=== PATIENT | female | born 1940 | race Caucasian/White ===

== ENCOUNTER → 2016-10-19 | Outpatient (CLI) | payer MEDICARE, BC ==
[~2016-10-19] MED LIST: AMLODIPINE BESYL5 MG PO; ASPIRIN; BENADRYL25 M1 PO; BENADRYL25 M3 PO; CLINDAMYCIN HC300 MG PO; CRESTOR; EPIPEN0.3 MG/0.1 IM; GLUCOPHAGE XR500 MG; GLUCOPHAGE850 MG PO; LOSARTAN-HCTZ1 EAC3 PO; MELATONIN5 M1 PO; PEPCID AC20 M2 PO; PREDNISONE PO; PREVACID PO; SIMVASTATIN40 MG PO; SINGULAIR; SPIRIVA18 MCG; TYLOX 5-500 CA1 EACH PO; ZETIA
--- NOTE | ~2016-10-19 | US80 ---
[facility] A Service of [facility] RADIOLOGY TEXT RESULTS PATIENT: LORELEI MCGUIRE LOCATION: [place] : 42 UNIT #: [id number] AGE: [address]: Bruno Blackburn MD SEX: F ORDER DR: [id number] [address] [address] [id number] O MR#: [id number] Acc #: [id number] NAME: LORELEI MCGUIRE : 1940 SEX: F STUDY DATE/TIME: 10/19/2016 13:34 UNIT: [facility] ROOM: STUDY DESCRIPTION: US Kidney Unilateral Complete Attending Physician: Bruno Blackburn M.D. Referring Physician: Bruno Blackburn M.D. Ordering Physician: Bruno Blackburn M.D. Primary Care Physician: Bruno Blackburn M.D. MEDICAL IMAGING REPORT This report is preliminary unless electronic signature is present. EXAM Bilateral complete renal ultrasound COMPARISONS Limited abdominal ultrasound dated August 12, [address] abdomen and pelvis dated January 13, 2006. INDICATIONS 76-year-old female with a hypoechoic 1.6-cm lesion seen in the inferior pole of the right kidney on complete abdominal ultrasound of July 2016. Followup imaging was recommended. FINDINGS The hepatic parenchyma appears coarse and echogenic relative to the right renal cortex, suggesting steatosis. Right kidney measures 8.5 cm in length with normal cortical thickness. There is no right hydronephrosis. In the inferior pole of the right kidney, there appears to be a [id number] structure with internal coarse calcification, measuring 2.2 cm x 1.3 cm x 2 cm. This does not have appreciable internal color flow. The left kidney is normal in length at 11.6 cm with normal cortical thickness. There is no left hydronephrosis. There are no shadowing renal calculi. There is a questionable hypoechoic structure in the inferior pole of the left kidney measuring 2.2 cm x 1.7 cm x 1.8 cm, which does not appear to be reproducible on all images through this region of the kidney, and on the transverse image appears to be corresponding to an area of band-like shadowing suggesting this is a pseudo lesion. There is no internal color flow. Urinary bladder is grossly unremarkable. IMPRESSION 1. No hydronephrosis. There is normal renal cortical thickness bilaterally. [facility] A Service of [facility] RADIOLOGY TEXT RESULTS PATIENT: LORELEI MCGUIRE LOCATION: [facility] : 41 UNIT #: [id number] AGE: [address]: Bruno Blackburn MD SEX: F ORDER DR: 2. Hypoechoic structure with some internal calcification measuring 2 cm x 1.3 cm x 2.2 cm in the inferior pole of the right kidney. Renal neoplasm cannot entirely be excluded. This does not have appreciable color flow and could represent a cyst with mural calcification as well. One could consider evaluation with MRI with IV Dotarem, which is generally safe in renal insufficiency or, CT with IV contrast could be performed if the patient's renal insufficiency is mild enough. Alternatively followup ultrasound in 6-12 months to document stability. 3. Hypoechoic structure apparently measured in the left kidney which may actually represent a pseudo lesion. If MRI or CT is performed, this could be definitively evaluated at that time or, alternatively, this could be reevaluated at the time of followup ultrasound. Dictated by... Mathew Timmons M.D. THIS IS AN ELECTRONICALLY VERIFIED REPORT Mathew Timmons M.D. at 10/21/2016 7:27 AM JADE/leslee TD: 10/19/2016 21:25 JOB #: [id number] MEDICAL IMAGING REPORT Page 1 of 1
== END | disposition home or self-care (01) ==
LOC: SGUS 13:00
DX: N28.1 Cyst of kidney, acquired (principal); N28.89 Other specified disorders of kidney and ureter
CPT/HCPCS: 76770

== ENCOUNTER → 2016-12-02 | Outpatient (CLI) | payer MEDICARE, BC ==
[2016-12-02 16:06] LABS: BASOPHIL# 0.1 X10e3 (0-0.3); BASOPHIL% 1.3 % (0-2.5); EOSINOPHIL# 0.1 X10e3 (0-0.7); EOSINOPHIL% 1.2 % (0.0-7.0); HEMATOCRIT 39.9 % (35.0-45.0); HEMOGLOBIN 13.5 gm/dL (12.0-16.0); LYMPHOCYTE# 2.6 X10e3 (1.0-3.5); LYMPHOCYTE% 24.8 % (17.0-45.0); MEAN CELL VOLUME 92.5 FL (83-96); MEAN CORPUSCULAR HEMOGLOBIN 31.4 PG (28-34); MEAN PLATELET VOLUME 7.5 FL (6.5-11.5); MONOCYTE# 0.8 X10e3 (0-1.0); MONOCYTE% 7.8 % (3.0-12.0); NEUTROPHIL# 6.9 X10e3 (1.5-7.1); NEUTROPHIL% 64.9 % (40-75); PLATELET COUNT 370 X10e3 (140-420); RED BLOOD COUNT 4.31 X10e (3.90-5.30); RED CELL DISTRIBUTION WIDTH 12.7 % (11.0-15.5); WHITE BLOOD COUNT 10.7 X10e3 (4.0-10.5)
[2016-12-02 16:08] LABS: DIFF IND NO
[2016-12-02 16:20] LABS: ALBUMIN SERUM 4.5 g/dL (3.5-5.0); BILIRUBIN,TOTAL 0.4 mg/dL (0.2-2.0); CALCIUM SERUM 9.7 mg/dL (8.4-10.2); GLOM FILT RATE Estimated 55.1 mL/min (>60); POTASSIUM 3.5 mmol/L (3.5-5.1); PROTEIN TOTAL SERUM 7.7 g/dL (6.0-8.3)
== END | disposition home or self-care (01) ==
LOC: SLAB 15:14
PROVIDERS: Internal Medicine Gastroenterology
DX: R79.89 Other specified abnormal findings of blood chemistry (principal); K76.0 Fatty (change of) liver, not elsewhere classified
CPT/HCPCS: 36415; 80053; 85025

== ENCOUNTER → 2017-02-16 | Day surgery (SDC) | payer MEDICARE, BC ==
--- NOTE | ~2017-02-16 | OR ---
Unit #: [id number] #: [id number] Patient: LORELEI MCGUIRE [id number] [address] [address] [id number] O MR#: [id number] NAME: LORELEI MCGUIRE ROOM: Date of Procedure: 02/16/2017 Admission Date: 02/16/2017 Surgeon: Aydin Thoams M.D. : 1940 Attending Physician: Aydin Thomas M.D. Primary Care Physician: Bruno Blackburn M.D. OPERATIVE REPORT PRIMARY CARE PHYSICIAN Bruno Blackburn M.D. PREOPERATIVE DIAGNOSES Dyspepsia, retrosternal ascending heartburn, and history of epigastric pain. PROCEDURES PERFORMED Upper gastrointestinal endoscopy and biopsy. POSTOPERATIVE DIAGNOSES 1. The patient had moderate distal erosive esophagitis. 2. There was distal esophageal Schatzki ring. The latter was dilated after repeated punch biopsy of the same area of the ring. 3. There was evidence of moderate prepyloric antral erosive gastritis. Biopsies were obtained from the antrum for CLOtest. 4. Rest of the examination up to third part of duodenum was normal. RECOMMENDATIONS The patient is advised to increase the dose of lansoprazole to 30 mg p.o. b.i.d. She will be followed up in the office in 3 months' time. SEDATION USED MAC. DESCRIPTION OF PROCEDURE Following detailed explanation of the potential risks and complications of an upper endoscopy, namely perforation, bleeding, and complications related to sedation, the patient was brought to GI lab and laid in the left lateral decubitus position. Lubricated tip of the Olympus video upper endoscope was passed through the bite block into the proximal esophagus under direct vision. The entire esophageal mucosa was examined. The patient was noted to have moderate distal erosive esophagitis with erosions at the Z-line in the distal esophagus. In addition, there was a Schatzki ring in the distal esophagus at the GE junction. The scope was then advanced into the gastric cavity and the latter was insufflated. Mucosa of the fundus, body, and antrum was examined and moderate prepyloric antral erosive gastritis noted in the form of diffuse antral erosions. Pylorus was intubated with visualization of the normal duodenal bulb and second and third part of the duodenum. Upon withdrawal and retroflexion; incisura, cardia, and greater curve was examined and no additional findings were noted. A biopsy was obtained the antrum for Unit #: [id number] #: [id number] Patient: LORELEI MCGUIRE. The scope was then withdrawn in the distal esophagus. Repeated punch biopsy of the same area of the ring in the distal esophagus was done in order to make the ring ineffective. The scope was then withdrawn all the way up to pharynx. The patient tolerated the procedure without any postprocedure complications. Dictated by... Kayden Tenorio/bri TD: 02/16/2017 15:24 JOB #: [id number] CC: Bruno Blackburn M.D. OPERATIVE REPORT Page 1 of 1 X Aydin Thomas MD X PROCEDURE OPERATIVE NOTE
== END | disposition home or self-care (01) ==
LOC: COPS 10:05
DX: K20.8 Other esophagitis (principal); K22.2 Esophageal obstruction; K29.00 Acute gastritis without bleeding; I10 Essential (primary) hypertension; E11.9 Type 2 diabetes mellitus without complications; J44.9 Chronic obstructive pulmonary disease, unspecified; M19.90 Unspecified osteoarthritis, unspecified site; F17.210 Nicotine dependence, cigarettes, uncomplicated; Z87.440 Personal history of urinary (tract) infections; Z88.1 Allergy status to other antibiotic agents; Z88.2 Allergy status to sulfonamides; Z88.8 Allergy status to other drugs, medicaments and biological substances; Z90.710 Acquired absence of both cervix and uterus
CPT/HCPCS: 82947; 87077

== ENCOUNTER → 2017-03-16 | Outpatient (CLI) | payer MEDICARE, BC ==
[2017-03-16 14:16] LABS: ALBUMIN SERUM 4.4 g/dL (3.5-5.0); BILIRUBIN,TOTAL 0.7 mg/dL (0.2-2.0); CALCIUM SERUM 9.4 mg/dL (8.4-10.2); CREATININE SERUM 0.8 mg/dL (0.6-1.4); GLOM FILT RATE Estimated 72.2 mL/min (>60); POTASSIUM 3.9 mmol/L (3.5-5.1); PROTEIN TOTAL SERUM 7.1 g/dL (6.0-8.3)
[2017-03-19 12:26] LABS: ANA SCREEN Positive (Negative); ANA TITER COMMENT Has been added (()); NUCLEAR PATTERN (ANA) Homogeneous (())
== END | disposition home or self-care (01) ==
LOC: CLAB 12:34
PROVIDERS: Nurse Practitioner
DX: R79.89 Other specified abnormal findings of blood chemistry (principal)
CPT/HCPCS: 36415; 80053; 82728; 83516; 86038; 86039